=== PATIENT | female | born 1970 | race Caucasian/White ===

== ENCOUNTER 2020-06-04 06:23 | Emergency (ER) | payer BC, OTHER ==
[2020-06-04 06:32] VITALS: BP 146/91; PULSE 87
--- NOTE | 2020-06-04 06:44 | EDM.PDOC ---
ED HPI GENERAL MEDICAL PROBLEM - General Chief Complaint: Upper Extremity Injury/Pain Stated Complaint: left hand injury Time Seen by Provider: 06/04/20 06:40 Source of Information: Reports: Patient, Old Records ([facility] EMR. No paper hospital chart available.), Other () History Limitations: Reports: No Limitations - History of Present Illness INITIAL COMMENTS - FREE TEXT/NARRATIVE: The patient was brought to the emergency room via transport vehicle from [facility] for evaluation of a Workmen's Compensation injury, which occurred at about 5:20 AM this morning. The patient was pushing a metal cart when she caught her left hand against another piece of metal. The laceration site was rinsed out with tap water and ice packs were applied prior to arrival to this facility. She has not injured this hand in the past. She does not know when she had her last tetanus booster. No history of paresthesias, neurological deficits, or other complaints or injuries. She is right-handed. No recent history of abdominal pain, heartburn, nausea, diarrhea, melena, gross hematochezia, or any food intolerance, including fatty foods, etc.. The patient also denies any recent fever, cough, wheezing, dyspnea, etc.. Onset: Today, Sudden Onset Date: 06/04/20 Onset Time: 05:20 Duration: Constant Location: Reports: Upper Extremity, Left. Denies: Head, Face, Neck, Chest, Abdomen, Back, Upper Extremity, Right, Radiates to Quality: Reports: Same as Previous Episode, Throbbing Severity: Severe Improves with: Reports: None Worsens with: Reports: None Context: Reports: Trauma (As above) Associated Symptoms: Reports: No Other Symptoms. 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) Left Hand Pain Score (Numeric/FACES): 8 - Related Data Allergies Allergy/AdvReac Type Severity Reaction Status Date / Time iodine Allergy Rash Verified 06/04/20 06:23 Home Meds: Home Meds Losartan [Cozaar] 1 tab PO DAILY 06/04/20 [History] Rosuvastatin [Crestor] 1 tab PO DAILY 06/04/20 [History] Past Medical History HEENT History: Reports: Impaired Vision Cardiovascular History: Reports: Arrhythmia, High Cholesterol, Other (See Below) Other Cardiovascular History: History of nonspecific tachycardia with negative work-up including stress test and Holter monitor, however records not seen in [facility] EMR. 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 Denies: Spontaneous : 2 Para: 2 LMP (Approximate): Other (See Below) Other WALLET ASSEMBLER History: x 2 secondary to distress and initial elective with second . Otherwise full-term deliveries without complications during her pregnancies or deliveries. Neurological History: Reports: Headaches, Chronic, Migraines Psychiatric History: Reports: Anxiety, Panic Attack Endocrine/Metabolic History: Reports: Obesity/BMI 30+ - Infectious Disease History Infectious Disease History: Reports: Chicken Pox - Past Surgical History HEENT Surgical History: Reports: Oral Surgery Cardiovascular Surgical History: Reports: None Female Surgical History: Reports: Hysterectomy Endocrine Surgical History: Reports: None Social & Family History - Tobacco Use Tobacco Use Status *Q: Never Tobacco User Second Hand Smoke Exposure: Yes - Caffeine Use Caffeine Use: Reports: Coffee - Recreational Drug Use Recreational Drug Use: No - Living Situation & Occupation Living situation: Reports: (2 children), with Family Occupation: Employed ([employer] Review of Systems - Review of Systems Review Of Systems: Comprehensive ROS is negative, except as noted in HPI. ED EXAM, GENERAL - Physical Exam Exam: See Below Exam Limited By: No Limitations General Appearance: Alert, WD/WN, No Apparent Distress Head: Atraumatic, Normocephalic Neck: Normal Inspection, Supple, Non-Tender, Full Range of Motion. No: Lymphadenopathy (L), Lymphadenopathy (R), Thyromegaly Respiratory/Chest: No Respiratory Distress, Lungs Clear, Normal Breath Sounds, No Accessory Muscle Use, Chest Non-Tender. No: Pleural Rub, Retractions Cardiovascular: Normal Peripheral Pulses, Regular Rate, Rhythm, No Edema, No Gallop, No JVD, No Murmur, No Rub. No: Gallop/S3, Gallop/S4, Friction Rub Peripheral Pulses: 2+: Radial (L), Radial (R) GI/Abdominal: Normal Bowel Sounds, Soft, Non-Tender, No Organomegaly, No Distention, No Abnormal Bruit, No Mass, Pelvis Stable, Other (Obese). No: Guarding (Female) Exam: Deferred Rectal (Female) Exam: Deferred Back Exam: Normal Inspection, Full Range of Motion. No: CVA Tenderness (L), CVA Tenderness (R), Muscle Spasm Extremities: No Pedal Edema, Normal Capillary Refill, Arm Pain (Moderate palpation pain over dorsal aspect of left hand at site of 7 cm irregular laceration with surrounding mild swelling and ecchymosis with no evidence of deformity, crepitation, foreign body, etc.), Limited Range of Motion (Left hand secondary to injury). No: Joint Swelling, Delma's Sign Neurological: Alert, Oriented, CN II-XII Intact, Normal Cognition, Normal Gait, Normal Reflexes, No Motor/Sensory Deficits Psychiatric: Normal Affect, Normal Mood Skin Exam: Warm, Normal Color, No Rash, Ecchymosis (As above), Wound/Incision (As above). No: Diaphoretic ED TRAUMA EXTREMITY PROCEDURES - Laceration/Wound Repair Left Middle Dorsal Hand Lac/Wound Length In cm: 7.0 Appearance: Subcutaneous, Mildly Contaminated Distal NVT: Neuro & Vascular Intact, No Tendon Injury Anesthetic Type: Local Local Anesthesia - Lidocaine (Xylocaine): 1% Plain Local Anesthetic Volume: Other (12 cc) Skin Prep: Chlorhexidine (Hibiciens) Saline Irrigation (cc's): 40 Exploration/Debridement/Repair: Wound Explored, In a Bloodless Field, Explored to Base, Minimal Debridement, No Foreign Material Found, Wound Margins Revised, Multiple Flaps Aligned Closed With: Sutures Suture Size: 4-0 Suture Type: Nylon, Interrupted, Simple Course - Vital Signs Last Recorded V/S: Last Vital Signs Temp 36.4 C 06/04/20 06:31 Pulse 87 06/04/20 06:31 Resp 12 06/04/20 06:31 BP 146/91 H 06/04/20 06:31 Pulse Ox 100 06/04/20 06:31 Vital Signs - 24 hr 06/04/20 06:31 Temperature [ 36.4 C Temporal] Pulse, 87 Peripheral [ Right Pulse Oximetry] Respiratory 12 Rate Blood Pressure 146/91 H [Right Upper Arm] O2 Sat by Pulse 100 Oximetry - Orders/Labs/Meds Orders: Active Orders 24 hr Category Date Time Status Vaccines to be Administered [RC] PER UNIT ROUTINE Care 06/04/20 06:49 Active Hand 2V Lt [CR] Stat Exams 06/04/20 06:44 Stop Req Hand Comp Min 3V Lt [CR] Stat Exams 06/04/20 06:41 Taken Obtain Past Medical Record [OM.PC] Routine Oth 06/04/20 06:49 Active Labs: None Meds: Medications Discontinued Medications Generic Name Dose Route Start Last Admin Trade Name Karen PRN Reason Stop Dose Admin Diphtheria/Tetanus/Acell Pertussis 0.5 ml 06/04/20 06:49 06/04/20 07:05 Boostrix IM 06/04/20 06:50 0.5 ml .ONCE ONE Administration Lidocaine HCl 5 ml 06/04/20 06:49 06/04/20 06:55 Xylocaine-Mpf 1% INJECT 06/04/20 06:50 5 ml ONETIME ONE Administration Lidocaine HCl 5 ml 06/04/20 06:50 06/04/20 06:55 Xylocaine-Mpf 1% INJECT 06/04/20 06:51 5 ml ONETIME ONE Administration Neomycin/Polymyxin/Bacitracin 1 each 06/04/20 06:49 06/04/20 06:55 Triple Antibiotic Oint TOP 06/04/20 06:50 1 each ONETIME ONE Administration - Radiology Interpretation Free Text/Narrative:: X-rays of the left hand, 3 views, shows no evidence of foreign body, fracture, dislocation, etc. Departure - Departure Time of Disposition: 07:55 Disposition: Home, Self-Care 01 Condition: Good Clinical Impression: Laceration, Contusion, Elevated blood pressure reading, Hyperlipidemia - Discharge Information *PRESCRIPTION DRUG MONITORING PROGRAM REVIEWED*: Not Applicable *COPY OF PRESCRIPTION DRUG MONITORING REPORT IN PATIENT MELVINA: Not Applicable Instructions: Contusion, [id number], Laceration Care, Adult, [id number], Sutures, Melissa, or Adhesive Wound Closure, [id number] Referrals: PCP,None [Primary Care Provider] - Forms: ED Department Discharge, ED Return to Work/School Form Additional Instructions: 1. Follow up with your regular provider in 10-14 days for suture removal as directed. Bring these discharge instructions with you to that visit. 2. Tylenol 650 mg by mouth every 4 hours and/or OTC ibuprofen 2-3 tabs by mouth every 6 hours with food as directed./needed. You may stagger these medications for 48-72 hours only, which essentially means that you are receiving a pain medication about every 2 hours. 3. Antibacterial soap wash/soak with subsequent antibacterial dressing such as Neosporin, etc. as directed 2 times per day until the wound or laceration site completely heals. Keep the area clean and dry with activity restrictions as discussed. Never use hydrogen peroxide for wound care. 4. Work excuse- See Form 5. Ice packs and hand elevation as directed 6. Immediately after this visit verify that your cellular telephone's voicemail has been activated and is empty. Also verify that your home telephone's answering machine is operating properly and has space to receive messages. Note that it is sometimes necessary for us to be able to contact you at a later date to discuss your medical care. 7. Please remember that we are ALWAYS here for you and want to answer any questions you may have. Feel free to call the hospital any time and we call you back ANDRIA. 8. Continue to observe your blood pressures closely through your regular provider. Sepsis Event Note (ED) - Evaluation Sepsis Screening Result: No Definite Risk - Focused Exam Vital Signs: Vital Signs Temp Pulse Resp BP Pulse Ox 06/04/20 06:31 36.4 C 87 12 146/91 H 100 - Problem List & Annotations (1) Laceration SNOMED Code(s): 207908356 Code(s): NLX4479 - Status: Acute Priority: High Current Visit: Yes Onset Date: 06/04/20 Annotation/Comment:: Excellent results with laceration repair as above. TDAP was given. Workmen's Compensation and [employer] work excuse forms were completed. Wound care, activity restrictions, etc. were extensively discussed. (2) Contusion SNOMED Code(s): 188619941 Code(s): T14.8XXA - OTHER INJURY OF UNSPECIFIED BODY REGION, INITIAL ENCOUNTER Status: Acute Priority: High Current Visit: Yes Onset Date: 06/04/20 Annotation/Comment:: Contusion of the left hand. Negative x-rays as above. Symptomatic relief as per discharge instructions. The patient did not wish to have IM Toradol. Qualifiers: Encounter type: initial encounter Contusion area: hand Laterality: left Qualified Code(s): S60.222A - Contusion of left hand, initial encounter (3) Elevated blood pressure reading SNOMED Code(s): 73703801 Code(s): R03.0 - ELEVATED BLOOD-PRESSURE READING, W/O DIAGNOSIS OF HTN St atus: Acute Priority: Medium Current Visit: Yes Onset Date: 06/04/20 Annotation/Comment:: No history of hypertension. Continue to observe closely by her regular provider. (4) Hyperlipidemia SNOMED Code(s): 85270230 Code(s): E78.5 - HYPERLIPIDEMIA, UNSPECIFIED Status: Chronic Priority: Medium Current Visit: Yes Annotation/Comment:: Currently under therapy. Continue to observe closely by her regular provider. Qualifiers: Hyperlipidemia type: unspecified Qualified Code(s): E78.5 - Hyperlipidemia, unspecified - Problem List Review Problem List Initiated/Reviewed/Updated: Yes - My Orders Last 24 Hours: My Active Orders 06/04/20 06:41 Hand Comp Min 3V Lt [CR] Stat 06/04/20 06:44 Hand 2V Lt [CR] Stat 06/04/20 06:49 Vaccines to be Administered [RC] PER UNIT ROUTINE Obtain Past Medical Record [OM.PC] Routine - Assessment/Plan Last 24 Hours: My Active Orders 06/04/20 06:41 Hand Comp Min 3V Lt [CR] Stat 06/04/20 06:44 Hand 2V Lt [CR] Stat 06/04/20 06:49 Vaccines to be Administered [RC] PER UNIT ROUTINE Obtain Past Medical Record [OM.PC] Routine Assessment:: As above Plan: As above. Extensive precautions were given to the patient, who is in agreement with the treatment plan. See Patient Instructions for further treatment and plan.
[2020-06-04] MEDS ORDERED: Bacitracin/Neomycin/Polymyxin B Oint 0.9 GM U/D Packet TOP ONE (06:49)
[2020-06-04] MEDS ORDERED: Diphtheria,Pertussis(Acell),Tetanus Vaccine 0.5 ML Syringe IM ONE (06:49)
== END 2020-06-04 07:55 | disposition home or self-care (01) ==
LOC: LL.ED 06:23
DX: S61.412A Laceration without foreign body of left hand, initial encounter (principal); E78.5 Hyperlipidemia, unspecified; R03.0 Elevated blood-pressure reading, without diagnosis of hypertension; E78.00 Pure hypercholesterolemia, unspecified; E66.9 Obesity, unspecified; Z23 Encounter for immunization; Z68.30 Body mass index [BMI] 30.0-30.9, adult; Z90.710 Acquired absence of both cervix and uterus; Z77.22 Contact with and (suspected) exposure to environmental tobacco smoke (acute) (chronic); Z88.8 Allergy status to other drugs, medicaments and biological substances; X50.0XXA Overexertion from strenuous movement or load, initial encounter
CPT/HCPCS: 12002; 73130; 90471; 90715; 99283; J2001; 99282

== ENCOUNTER 2022-06-26 12:49 | Emergency (ER) | payer OTHER, BC ==
[2022-06-26] MEDS ORDERED: Ondansetron 4 MG/2 ML SDV ONE (12:59)
[2022-06-26] MEDS ORDERED: HYDROmorphone 1 MG/ML Syringe ONE ×2 (13:00→13:46)
[2022-06-26] MEDS ORDERED: Sodium Chloride 0.9% 1,000 ML IV SCH ×2 (13:02→15:30)
[2022-06-26] MEDS ORDERED: Sodium Chloride 0.9% 500 ML IV SCH (13:02)
[2022-06-26] MEDS ORDERED: diphenhydrAMINE 50 MG/ML SDV ONE (13:11)
[2022-06-26] MEDS ORDERED: ceFAZolin 1 GM Vial ONE (13:27)
[2022-06-26 13:52] LABS: ANION GAP 12.6 meq/L (7-15); CHLORIDE,CL 103 mmol/L (98-107); ESTIMATED GFR 85 mL/min (>=60); SODIUM,NA 138 mmol/L (136-145)
[2022-06-26] MEDS ORDERED: Acetaminophen/oxyCODONE 325-5 MG Tab PO ONE (15:17)
== END 2022-06-26 16:15 ==
LOC: LL.ED 12:49
DX: S67.194A Crushing injury of right ring finger, initial encounter (principal); S67.196A Crushing injury of right little finger, initial encounter; S67.21XA Crushing injury of right hand, initial encounter; E78.00 Pure hypercholesterolemia, unspecified; I10 Essential (primary) hypertension; E66.9 Obesity, unspecified; Z68.34 Body mass index [BMI] 34.0-34.9, adult; Z88.6 Allergy status to analgesic agent; Z79.899 Other long term (current) drug therapy; W23.0XXA Caught, crushed, jammed, or pinched between moving objects, initial encounter; Y92.89 Other specified places as the place of occurrence of the external cause; Y99.0 Civilian activity done for income or pay
CPT/HCPCS: 36415; 73120-RT; 80053; 85025; 93005; 93010; 96361; 96365; 96375; 96376; 99284; 99285-25; A9270-GY; J0690; J1170; J1200; J2405; J7030